=== PATIENT | male | born 1985 | race Caucasian/White ===

== ENCOUNTER 2016-09-19 10:30 | Emergency (ER) | payer BC ==
[~2016-09-19] VITALS: Ht 185.4 cm; Wt 87.0 kg
[~2016-09-19 10:30] MED LIST: OFLO1DRO8 EACH EYE
--- NOTE | 2016-09-19 10:37 | PD ---
HPI . chest pain for 5 days Chief Complaint: chest pain Time Seen by Provider: 10:37 Travel History International Travel<30 days: No Contact w/Intl Traveler<30days: No Traveled to known affect area: No History of Present Illness HPI 31 Year-old male with no significant past medical history here with complaints of chest pain since Monday. Patient says he has been having left sided chest pain without any radiation or breaks. Patient rates the pain about 5/10. He denies any nausea vomiting or diaphoresis. His girlfriend did give him a baby aspirin which sort of helped. Tells me that he thinks he may have some high blood pressure, but has never been formally diagnosed and does not take any medications. He denies any significant family history of cardiac events. PFSH Past Medical History Medical History: Denies Significant Hx Diminished Hearing: No Past Surgical History Oral Surgery: Yes (WISDOM TEETH) Social History Alcohol Use: No Tobacco Use: No Substance Use: No Allergies-Medications (Allergen,Severity, Reaction): Coded Allergies: No Known Allergies (Verified , 03/31/14) Reported Meds & Prescriptions Reported Meds & Active Scripts Active Ibuprofen 800 Mg Tab 800 Mg PO TID Ocuflox 0.3% Opht Soln (5 Ml) (Ofloxacin) 0.3 % Soln 1 Drop EACH EYE QID 7 Days Review of Systems General / Constitutional: No: Fever Eyes: No: Visual changes HENT: No: Headaches Cardiovascular: Positive: Chest Pain or Discomfort Respiratory: No: Shortness of Breath Gastrointestinal: No: Abdominal Pain Genitourinary: No: Dysuria Musculoskeletal: No: Pain Skin: No Rash Neurologic: No: Weakness Psychiatric: No: Depression Endocrine: No: Polydipsia Hematologic/Lymphatic: No: Easy Bruising Physical Exam Narrative GENERAL: AAO x 3, no acute distress, Well-nourished, well-developed patient. SKIN: Warm and dry. No visible rashes or bruising. HEAD: Normocephalic and atraumatic. EYES: No scleral icterus. No injection or drainage. ENT: No nasal drainage noted. Mucous membranes pink. Airway patent. NECK: Supple, trachea midline. No JVD. CARDIOVASCULAR: Regular rate and rhythm without murmurs, gallops, or rubs. RESPIRATORY: Breath sounds equal bilaterally. No accessory muscle use. No rhonchi or rales. Nonreproducible chest pain. GASTROINTESTINAL: Abdomen soft, non-tender, nondistended. EXTREMITIES: No cyanosis or edema. BACK: Nontender without obvious deformity. No CVA tenderness. PSYCH: AAO x 3, normal affect. Data Data Last Documented VS Vital Signs Date Time Temp Pulse Resp B/P Pulse Ox O2 Delivery O2 Flow Rate FiO2 09/19/16 11:12 99 Room Air 09/19/16 11:12 72 09/19/16 10:38 98.2 20 161/109 Orders Electrocardiogram (09/19/16 10:42) Basic Metabolic Panel (Bmp) (09/19/16 10:42) Ckmb (Isoenzyme) Profile (09/19/16 10:42) Complete Blood Count With Diff (09/19/16 10:42) Magnesium (Mg) (09/19/16 10:42) Prothrombin Time / Inr (Pt) (09/19/16 10:42) Act Partial Throm Time (Ptt) (09/19/16 10:42) Troponin I (09/19/16 10:42) Chest, Single Ap (09/19/16 10:42) Ecg Monitoring (09/19/16 10:42) Bilateral Bp Monitoring (09/19/16 10:42) Iv Access Insert/Monitor (09/19/16 10:42) Oximetry (09/19/16 10:42) Oxygen Administration (09/19/16 10:42) Sodium Chloride 0.9% Flush (Ns Flush) (09/19/16 10:45) Drug Screen, Random Urine (09/19/16 10:56) CKMB (09/19/16 10:50) CKMB% (09/19/16 10:50) Labs Laboratory Tests Test 09/19/16 09/19/16 10:50 11:00 White Blood Count 10.6 TH/MM3 Red Blood Count 5.73 MIL/MM3 Hemoglobin 16.0 GM/DL Hematocrit 47.0 % Mean Corpuscular Volume 82.0 FL Mean Corpuscular Hemoglobin 27.8 PG Mean Corpuscular Hemoglobin 34.0 % Concent Red Cell Distribution Width 12.9 % Platelet Count 275 TH/MM3 Mean Platelet Volume 9.0 FL Neutrophils (%) (Auto) 62.6 % Lymphocytes (%) (Auto) 26.8 % Monocytes (%) (Auto) 8.8 % Eosinophils (%) (Auto) 1.4 % Basophils (%) (Auto) 0.4 % Neutrophils # (Auto) 6.7 TH/MM3 Lymphocytes # (Auto) 2.8 TH/MM3 Monocytes # (Auto) 0.9 TH/MM3 Eosinophils # (Auto) 0.1 TH/MM3 Basophils # (Auto) 0.0 TH/MM3 CBC Comment DIFF FINAL Differential Comment Prothrombin Time 10.6 SEC Prothromb Time International 1.0 RATIO Ratio Activated Partial 28.9 SEC Thromboplast Time Sodium Level 136 MEQ/L Potassium Level 4.1 MEQ/L Chloride Level 103 MEQ/L Carbon Dioxide Level 25.4 MEQ/L Anion Gap 8 MEQ/L Blood Urea Nitrogen 15 MG/DL Creatinine 1.17 MG/DL Estimat Glomerular Filtration 73 ML/MIN Rate Random Glucose 97 MG/DL Calcium Level 9.0 MG/DL Magnesium Level 2.1 MG/DL Total Creatine Kinase 261 U/L Creatine Kinase MB 2.0 NG/ML Troponin I LESS THAN 0.02 NG/ML Urine Opiates Screen NEG Urine Barbiturates Screen NEG Urine Amphetamines Screen NEG Urine Benzodiazepines Screen NEG Urine Cocaine Screen NEG Urine Cannabinoids Screen NEG MDM Medical Decision Making Medical Screen Exam Complete: Yes Emergency Medical Condition: Yes Differential Diagnosis costochondritis, musculoskeletal strain, less likely ACS Narrative Course 31 Year-old male with no significant past medical history here with complaints of chest pain since Monday. Patient says he has been having left sided chest pain without any radiation or breaks. Patient rates the pain about 5/10. He denies any nausea vomiting or diaphoresis. His girlfriend did give him a baby aspirin which sort of helped. Tells me that he thinks he may have some high blood pressure, but has never been formally diagnosed and does not take any medications. He denies any significant family history of cardiac events. Patient seen and examined. Case discussed with Dr. Oliveira. EKG reviewed by Dr. Oliveira. Chest x-ray normal. Labs unremarkable. Troponin unremarkable. Discussed with patient. Recommend establishing with a primary care provider for further workup and treatment. Patient verbalized understanding of instructions, questions were answered, and thanked me for their care. I advised them if their condition worsens, please return to the nearest emergency room for further care. Diagnosis Primary Impression: Chest pain Qualified Code: R07.89 - Other chest pain Additional Impression: Elevated blood pressure reading without diagnosis of hypertension Patient Instructions: Chest Pain (ED), General Instructions, Hypertension (ED) Additional Instructions: Please return to emergency department if your symptoms return or worsen. Follow up with your primary care provider. Take medications as prescribed. Med/Other Pt SpecificInfo: Prescription(s) given Scripts Ibuprofen 800 Mg Oxd719 Mg PO TID #30 TAB Ref 0 Prov:Emelia Galvez 09/19/16 Disposition: 01 DISCHARGE HOME Condition: Stable Emelia Galvez Sep 19, 2016 10:37
[2016-09-19 10:38] VITALS: BP 161/109; PULSE 74; RESP 20; TEMP 98.2
[2016-09-19] MEDS ORDERED: SODIUM CHLORIDE 0.9% FLUSH 5 ML FLUSH IVF PRN (10:45)
[2016-09-19 11:05] LABS: AUTOMATED NEUTROPHIL # 6.7 TH/MM3 (1.8-7.7); BASOPHIL % 0.4 % (0.0-2.0); EOSINOPHIL # 0.1 TH/MM3 (0-0.4); EOSINOPHIL % 1.4 % (0.0-4.0); HEMO FLAGS DIFF FINAL; LYMPH % 26.8 % (9.0-44.0); LYMPHOCYTE # 2.8 TH/MM3 (1.0-4.8); MEAN CORPUSCULAR HEMOGLOBIN 27.8 PG (27.0-34.0); MONO % 8.8 % (0.0-8.0); NEUT % 62.6 % (16.0-70.0); PLATELET COUNT 275 TH/MM3 (150-450); RED BLOOD COUNT 5.73 MIL/MM3 (4.50-5.90); RED CELL DISTRIBUTION WIDTH 12.9 % (11.6-17.2); WHITE BLOOD COUNT 10.6 TH/MM3 (4.0-11.0)
[2016-09-19 11:12] VITALS: PULSE 72; O2SAT 99
[2016-09-19 11:22] LABS: APTT (PATIENT) 28.9 SEC (24.3-30.1); PROTHROMBIN TIME - PATIENT 10.6 SEC (9.8-11.6)
[2016-09-19 11:23] LABS: ANION GAP 8 MEQ/L (5-15); BICARBONATE 25.4 MEQ/L (21.0-32.0); BLOOD UREA NITROGEN 15 MG/DL (7-18); CHLORIDE 103 MEQ/L (98-107); GLOMERULAR FILTRATION RATE 73 ML/MIN (>89); MAGNESIUM 2.1 MG/DL (1.5-2.5); POTASSIUM 4.1 MEQ/L (3.5-5.1); SODIUM (NA) 136 MEQ/L (136-145)
[2016-09-19 11:27] LABS: CREATINE KINASE 261 U/L (39-308)
--- NOTE | 2016-09-19 11:29 | RADRPT ---
EXAM DATE/TIME: 09/19/2016 10:53 [facility] COMPARISON: No previous studies available for comparison. INDICATIONS : Left side chest pains. MEDICAL HISTORY : None. SURGICAL HISTORY : None. ENCOUNTER: Initial ACUITY: 1 day PAIN SCORE: 5/10 LOCATION: Left chest FINDINGS: A single view of the chest demonstrates the lungs to be symmetrically aerated without evidence of mas s, infiltrate or effusion. The cardiomediastinal contours are unremarkable. Osseous structures are intact. CONCLUSION: No acute disease. Zach Degroot MD FACR on September 19, 2016 at 11:26 Board Certified Radiologist. This report was verified electronically.
[2016-09-19 11:44] LABS: AMPHETAMINE, URINE NEG (NEG); BARBITURATES, URINE NEG (NEG); COCAINE, URINE NEG (NEG)
[2016-09-19] MEDS ORDERED: IBUP800T23 PO (12:07)
--- NOTE | 2016-09-21 11:53 | EKG ---
Date Performed: 09/19/2016 Time Performed: 10:41:41 PTAGE: 31 years EKG: Sinus rhythm MODERATE T-WAVE ABNORMALITY, CONSIDER ANTERIOR ISCHEMIA ABNORMAL ECG NO PREVIOUS TRACING DOCTOR: Austin Gonzalez Interpretating Date/Time 09/21/2016 11:52:36
== END 2016-09-19 12:25 | disposition home or self-care (01) ==
LOC: NEPC 10:30
DX: R07.89 Other chest pain (principal); R03.0 Elevated blood-pressure reading, without diagnosis of hypertension; R94.31 Abnormal electrocardiogram [ECG] [EKG]
CPT/HCPCS: 71010; 80048; 80307; 82550; 82552; 83735; 84484; 85025; 85610; 85730; 93005